=== PATIENT | male | born 1995 | race Caucasian/White ===

== ENCOUNTER 2022-06-11 15:25 | Emergency (ER) | payer OTHER ==
[2022-06-11 16:18] VITALS: BP 159/102
== END 2022-06-11 16:13 | disposition home or self-care (01) ==
LOC: ED 15:25
DX: S01.81XA Laceration without foreign body of other part of head, initial encounter (principal); Z28.310 Unvaccinated for COVID-19; W22.8XXA Striking against or struck by other objects, initial encounter; Y92.59 Other trade areas as the place of occurrence of the external cause; Y99.0 Civilian activity done for income or pay